=== PATIENT | male | born 1955 | race Caucasian/White ===

== ENCOUNTER 2018-01-15 10:28 | Outpatient (CLI) | payer MEDICAID ==
[~2018-01-15] VITALS: Ht 180.3 cm; Wt 84.8 kg
[2018-01-15 11:11] VITALS: BP 102/57
[2018-01-15] MEDS ORDERED: no medication (11:14)
--- NOTE | 2018-01-15 16:12 | GI Initial Consult Note ---
History of Present Illness General Date patient seen: Jan 15, 2018 Time patient seen: 16:05 Referring physician: AMBER OLMOS Reason for Consultation: SCREENING COLONOSCOPY Present Illness HPI 62 year old male patient presents today for routine colonoscopy screening. Has complaint of epigastric pain, states he uses Zantac for relief. The patient has no history of endoscopy / colonoscopy. Denies any unintentional weight loss or changes in dietary habits. No signs of abuse or neglect. Patient is not fall risk. No noted medical history. Home Meds Reported Medications [no medication ] No Conflict Check 01/15/18 Med list reviewed/reconciled: Yes Allergies: Coded Allergies: PENICILLINS (Verified Allergy, Unknown, Rash, 01/15/18) Patient History History Provided By: Patient, Medical Record PMH Narrative Denies any medical history. Denies any surgical history. Social History: Reports: alcohol use - quit recently x1 month, other - caffeine Review of Systems All Other Systems: negative except mentioned in HPI Physical Exam Vital Signs Date Time Temp Pulse Resp B/P (MAP) Pulse Ox O2 Delivery O2 Flow Rate FiO2 01/15/18 11:11 98.0 50 18 102/57 100 98.0 Sp02 EP Interpretation: reviewed, normal General Appearance: well appearing, no apparent distress, alert Head: normocephalic EENT: PERRL/EOMI, normal ENT inspection Neck: supple Respiratory: normal breath sounds, no respiratory distress Cardiovascular: normal rate Gastrointestinal: normal inspection, non tender, soft, normal bowel sounds, non -distended Rectal: deferred Genitourinary: deferred Musculoskeletal: normal inspection, back normal Neurologic: normal inspection, alert, oriented x3, responsive Psychiatric: normal inspection, judgement/insight normal, memory normal Skin: normal inspection, normal color, no rash, warm/dry, palpation normal, well hydrated Lymphatic: normal inspection, no adenopathy GI: Plan Problems: (1) GERD (gastroesophageal reflux disease) (2) Colonoscopy planned Plan EGD/colonoscopy to be scheduled pending PA, will contact patient. - CLD & (Nulytely/Suprep/Movi-Prep) prep instructions given and acknowledged by patient. - NPO @ ME day prior procedure explained. cont H2B will follow with additional recs post procedure Discussed with Dr. Flores. Thank you for this patient referral, we will follow. The patient was seen and examined at bedside and all new and available data was reviewed in the patients chart. I agree with the above findings, impression and plan. (Patient seen earlier today. Signature stamp does not reflect patient encounter time.). - MD Mariaelena ParrBenson HospitalJimmy CONRAD Jan 15, 2018 16:11
== END 2018-01-15 10:58 | disposition home or self-care (01) ==
LOC: PAN 10:28
DX: Z12.11 Encounter for screening for malignant neoplasm of colon (principal); K21.9 Gastro-esophageal reflux disease without esophagitis; Z88.0 Allergy status to penicillin
CPT/HCPCS: 99201